=== PATIENT | female | born 1930 | race Caucasian/White ===

== ENCOUNTER 2019-07-20 11:08 | Emergency (ER) | payer OTHER ==
[~2019-07-20] VITALS: Ht 157.5 cm; Wt 81.6 kg
[~2019-07-20 11:08] MED LIST: ACTOS30 MG PO; CARDIZEM CD240 MG PO; CRESTOR20 MG PO; GLIPIZIDE5 MG PO; HYDROCHLOROTHIA25 MG PO; ISOSORBIDE DINI10 MG PO; METFORMIN HCL500 M2 PO; SIMVASTATIN80 MG PO; ZETIA10 MG PO
--- OUTSIDE RECORDS SUMMARY | 2019-07-20 11:11 | XMS REPORT ---
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 Allergies, Adverse Reactions, Alerts This patient has no known allergies or adverse reactions. Medications This patient has no known medications.
[2019-07-20] MEDS ORDERED: CLONIDINE HCL 0.2 MG TAB PO ONE (11:45)
[2019-07-20] MEDS ORDERED: CLONIDINE HCL 0.1 MG TAB ONE (12:00)
--- NOTE | 2019-07-20 12:25 | Diagnostic Imaging Report ---
Chest, single frontal view History: Cough, congestion Comparison: No comparisons available for review IMPRESSION: The heart is within normal limits of size. There is right basilar atelectasis. No definite focal consolidation, sizable pleural effusion, or pneumothorax. Postsurgical changes of the right shoulder are noted. No acute osseous abnormalities. Signed by: Tavo García MD on 07/20/2019 12:21 PM
[2019-07-20 12:45] VITALS: BP 189/77
== END 2019-07-20 12:51 | disposition home or self-care (01) ==
LOC: FSED 11:08
DX: R05 Cough (principal); I10 Essential (primary) hypertension; E11.9 Type 2 diabetes mellitus without complications; E78.5 Hyperlipidemia, unspecified; J30.2 Other seasonal allergic rhinitis; Z95.5 Presence of coronary angioplasty implant and graft
CPT/HCPCS: 71045; 80053; 81003; 82553; 83880; 84484; 85025; 87400; 93005; 99284

== ENCOUNTER 2021-01-24 11:59 | Emergency (ER) | payer OTHER ==
[~2021-01-24] VITALS: Ht 157.5 cm; Wt 81.6 kg
[2021-01-24 12:27] LABS: BASOPHILS # (AUTO) 0.1 (0.0-0.1); BASOPHILS % 0.8 % (0.0-1.0); EOSINOPHILS # (AUTO) 0.2 (0.0-0.4); EOSINOPHILS % 2.8 % (0.0-6.0); HEMATOCRIT 39.2 % (34.2-44.1); LYMPHOCYTES # (AUTO) 1.8 (1.0-3.2); LYMPHOCYTES % 28.3 % (18.0-39.1); MEAN CORPUSCULAR HEMOGLOBIN 27.2 pg (28-32); MEAN CORPUSCULAR HGB CONC 33.2 g/dL (31-35); MONOCYTES # (AUTO) 0.6 (0.2-0.8); MONOCYTES % 8.9 % (4.4-11.3); NEUTROPHILS # (AUTO) 3.7 (2.1-6.9); NEUTROPHILS % 58.6 % (38.7-80.0); PLATELET COUNT 186 x10e3/uL (140-360); RED BLOOD COUNT 4.78 x10e6/uL (3.6-5.1); RED CELL DISTRIBUTION WIDTH 14.3 % (11.7-14.4)
[2021-01-24] MEDS ORDERED: MECLIZINE HCL 12.5 MG TAB PO ONE (12:30)
[2021-01-24] MEDS ORDERED: SODIUM CHLORIDE 0.9% 100 ML ONE (12:39)
[2021-01-24] MEDS ORDERED: IOPAMIDOL 370 MG/ML 200 ML INFUS..BTL INJ ONE (12:39)
[2021-01-24 12:57] LABS: ALBUMIN 3.4 g/dL (3.5-5.0); ANION GAP 15.4 mmol/L (8-16); CALCIUM 8.8 mg/dL (8.4-10.2); CREATININE, SERUM 1.38 mg/dL (0.57-1.11); POTASSIUM 4.4 mmol/L (3.5-5.1)
[2021-01-24] MEDS ORDERED: MECLIZINE HCL12.5 MG PO (16:01)
== END 2021-01-24 16:23 | disposition home or self-care (01) ==
LOC: ER 12:15
DX: R42 Dizziness and giddiness (principal); E11.65 Type 2 diabetes mellitus with hyperglycemia; I10 Essential (primary) hypertension; E78.5 Hyperlipidemia, unspecified; E78.00 Pure hypercholesterolemia, unspecified; Z95.5 Presence of coronary angioplasty implant and graft
CPT/HCPCS: 36415; 70496; 70498; 80053; 84484; 85025; 93005; 99284; J7050; J8597; Q9967